=== PATIENT | female | born 1955 | race Caucasian/White ===

== ENCOUNTER 2016-12-25 17:26 | Emergency (ER) | payer MEDICARE, OTHER ==
[~2016-12-25] VITALS: Ht 170.2 cm; Wt 98.6 kg
[~2016-12-25 17:26] MED LIST: COU5 PO; PRILOSEC; SULF1TAB7 PO
[2016-12-25 17:28] VITALS: BP 143/78; PULSE 84; RESP 16; O2SAT 99
[2016-12-25 17:53] LABS: BASOPHILS % (AUTO) 0.4 % (0-3); EOSINOPHILS % (AUTO) 3.1 % (0-5); MONOCYTES % (AUTO) 7.4 % (4-12); Mean Corpuscular Hemoglobin 33.9 pg (27.0-35.0); Mean Corpuscular Volume 101.8 fL (81-100); Platelet Count 230 bil/L (150-400)
[2016-12-25] MEDS ORDERED: 0.9% Sodium Chloride 1,000 ML IV ONE (20:30)
--- NOTE | 2016-12-25 20:34 | ED.REPORT ---
HPI-Abd Pain F 40 and Over Date of Service Dec 25, 2016 ED Provider: Jerome Victor PA-C Tatyana is a 61-year-old female with a history of gastric bypass surgery, factor V Leiden deficiency who presents with a chief complaint of abdominal pain. She reports left sided abdominal pain centered in the left lower quadrant that radiates to the suprapubic. She states that it is intermittent crampy. Aggravated by walking and moving around. She reports that it is 10 over 10 at its worse and 3 out of 10 when it is less. The pain began last night and woke her from sleep. She reports feeling weak, dizzy, having diarrhea, dysuria without hematuria. History of appendectomy, cholecystectomy. She does have her uterus and ovaries. She had surgery 2 weeks ago to remove excess abdominal skin related to the weight loss from her gastric bypass surgery. Denies fever, chills, malaise, chest pain, difficulty breathing, heartburn. Nursing Notes Stated Complaint: PAIN AND FEVER FROM URGENT CARE Chief Complaint: Female Abdominal Pain Nursing Notes Reviewed: Yes Allergies: Coded Allergies: No Known Allergies (Unverified Allergy, Unknown, 12/25/16) Scheduled ([Prilosec]) 20 MG BID Amoxicillin/Clav K 875-125 mg (Amoxicillin/Clav K 875-125 mg) 875 Mg Tab 1 TABLET PO BID Ondansetron ODT (Ondansetron ODT) 4 Mg Tab.rapdis 4-8 MG PO TID Sulfamethoxazole/Trimeth 800-160 mg (Bactrim DS) 1 Each Tablet 1 TABLET PO BID Warfarin Inactive Drug Do Not Use (Coumadin Inactive Drug Do Not Use) 5 Mg Tablet 10 MG PO 17 WEDNESDAY Warfarin Inactive Drug Do Not Use (Coumadin Inactive Drug Do Not Use) 5 Mg Tablet 7.5 MG PO 17 6 DAYS/ WEEK [id number]-WED-WED General Time Seen by MD: 20:09 Chief Complaint Abdominal pain Sudden in Onset?: Yes Past Medical History Past Medical History pneumonia UTI Reports: Hypertension Past Surgical History thyroid biopsy left wrist reconstruction gastric bypass Reports: Appendectomy, Cholecystectomy Social History "moderate" alcohol use Ambulatory Status Independent Review of Systems General: Denies fever, chills, malaise. HEENT: Denies congestion, headache, sore throat. Respiratory: Denies dyspnea, cough, shortness of breath, wheezing. Cardiovascular: Denies chest pain, palpitations. Gastrointestinal: Admits abdominal pain. Denies vomiting, diarrhea. Otherwise as noted in HPI. Physical Exam General: Well appearing, well developed, well nourished, no acute distress. Head: Atraumatic, normocephalic. Eyes: No scleral icterus or injection. No discharge. Vision grossly intact. ENT: Voice clear, hearing grossly intact. Respiratory: Regular rate and rhythm. Breath sounds present, clear to auscultation and equal bilaterally. No respiratory distress. No increased work of breathing, speaks in complete sentences. Cardiovascular: Regular rate and rhythm, without murmur, gallop or rub. No pedal edema. Gastrointestinal: Long transverse incision covered surgical tape across the abdomen below the umbilicus. Clean and dry without discharge. Appears to be healing well. Abdomen moderately tender to deep palpation in the left quadrants without rebound. No peritoneal signs. No Blessing or Cuello Victor sign. Bowel sounds normoactive. Skin: Warm and dry. Neurological: Grossly nonfocal. Psychological: Alert and oriented. Speech appropriate, linear and logical. Behavior appropriate. Vital Signs Vital Signs (First) Date Time Temp Pulse Resp B/P Pulse Ox O2 Delivery O2 Flow Rate FiO2 12/25/16 17:28 36.8 84 16 143/78 99 Room Air Initial VS: Reviewed, Vital signs normal Interpretation & Diagnostics Lab Results Interpretation Result Diagram: 12/25/16 1742 12/25/16 1742 Test 12/25/16 17:42 White Blood Count 8.5th/mm3 (3.8-10.1) Red Blood Count 3.92mil/mm3 (3.90-5.20) Hemoglobin 13.3g/dL (12.0-15.6) Hematocrit 39.9% (35.0-46.0) Mean Corpuscular Volume 101.8fL (81-100) Mean Corpuscular Hemoglobin 33.9pg (27.0-35.0) Mean Corpuscular Hemoglobin Concent 33.3% (32.0-37.0) Red Cell Distribution Width 12.8% (12.3-15.4) Platelet Count 230bil/L (150-400) Neutrophils (%) (Auto) 72.0% (40-74) Lymphocytes (%) (Auto) 17.0% (14-46) Monocytes (%) (Auto) 7.4% (4-12) Eosinophils (%) (Auto) 3.1% (0-5) Basophils (%) (Auto) 0.4% (0-3) Sodium Level 136mEq/L (134-144) Potassium Level 4.2mEq/L (3.5-5.2) Chloride Level 97mEq/L (97-108) Carbon Dioxide Level 25mmol/L (18-29) Blood Urea Nitrogen 11mg/dL (8-27) Creatinine 0.59mg/dL (0.57-1.00) Estimat Glomerular Filtration Rate 148mL/min (>59) Glucose Level 108mg/dL (60-99) Calcium Level 8.8mg/dL (8.5-10.1) Magnesium Level 2.0mg/dL (1.6-2.6) Total Bilirubin 0.3mg/dL (0.0-1.2) Aspartate Amino Transf (AST/SGOT) 18U/L (0-50) Alanine Aminotransferase (ALT/SGPT) 21U/L (0-32) Alkaline Phosphatase 93U/L (25-165) Total Protein 6.9g/dL (6.4-8.4) Albumin 3.8g/dL (3.4-5.0) Lipase 35U/L (13-60) Hold Zavaleta Top Tube Received (Received) CT Abd / Pelvis Interpretation PROCEDURE: CT ABDOMEN AND PELVIS WITH CONTRAST ([id number]) INDICATIONS: left-sided abdominal pain IMPRESSION: 1. Extensive diverticulosis. There is acute diverticulitis in sigmoid colon. No evidence for No diverticular perforation or diverticular abscess. 2. Intrahepatic dilatation and dilated common bile duct appear stable, most likely sequelae of cholecystitis. 3. Gastric bypass. 4. A large subcutaneous fluid collection within the anterior abdominal wall measuring 2 x 19 x 6 cm. It is most likely a postoperative seroma. Interpretation / Wet Read by: Interpret - Radiologist Re-Eval/Medical Decision Med Decision/Clinical Course 61-year-old female with chief complaint of abdominal pain that woke her from sleep last night. Moderately tender to deep palpation in left quadrants. CBC and CMP are essentially normal. Vital signs normal. CT reveals extensive diverticulosis with diverticulitis in the sigmoid colon. No abscess or perforation noted. I believe she is a good candidate for outpatient treatment as her pain is moderate, her vitals are within normal limits, she has no leukocytosis, she seems capable of adhering to medication regimen and obtaining follow-up care. She is amenable to outpatient care. I discussed the case with Dr. Coles who met with and examine the patient. She concurs. Provided prescription for amoxicillin clavulanate to be taken twice a day for 10 days as well as Zofran and a small amount of hydrocodone and acetaminophen. Advise primary care follow-up in 3 days. Provided emergency return precautions. Patient and her family understand and agree with the plan. Discharge & Departure Primary Impression: Diverticulitis Diverticulitis site: large intestine Diverticulitis bleeding: without bleeding Diverticulitis complication: without perforation or abscess Qualified Code: K57.32 - Diverticulitis of large intestine without perforation or abscess without bleeding Disposition: Home Discharge Condition All VS Reviewed: Yes Condition: Stable Patient Instructions: Diverticulitis (ED), Diverticulitis Diet (ED) Additional Instructions: Evaluation in the emergency department for abdominal pain. CT of her abdomen and pelvis reveals diverticulitis in your sigmoid colon. Does not appear to be severe or complicated. Your labs, vitals and physical exam are otherwise encouraging. I believe he is stable and safe to be discharged to home for outpatient treatment A provide you with her first dose of Augmentin to be taken here in the emergency department. Please continue taking his medication twice a day for the next 10 days. I will provide a prescription. I will also provide a prescription for antinausea medication as this can sometimes upset your stomach. It is best taken with food. I have provided you with some instructions regarding diet that might improve your comfort. I will send you home with a small supply of narcotic pain relievers. Please do not drink alcohol or operate a vehicle within 4 hours of taking these. When these are gone I suggest 1000 g of Tylenol every 6 hours for pain. Please follow up with your primary care provider in 2 or 3 days to assess your progress. Return to emergency department for any new or worsening symptoms including increasing pain, fever, vomiting.. Referrals: Verónica Limon (PCP) (Family) EDSupervising Provider for APC: Mahsa Coles MD Attending Statement I agree with J LUIS Victor's note. 61-year-old female with past medical history of diverticulitis and factor V Leiden disease here with flare of diverticulitis. She is very reliable. She has been given a prescription for Augmentin and her first dose in the emergency department. She will follow-up with her primary care physician. At this time, her abdominal exam is benign without any concern for acute surgical intervention. copies to: Verónica Limon Seth PA-C Dec 25, 2016 20:34 Mahsa Coles MD Dec 26, 2016 00:09
--- NOTE | 2016-12-25 21:35 | DRSVH ---
PROCEDURE: CT ABDOMEN AND PELVIS WITH CONTRAST ([id number]) INDICATIONS: left-sided abdominal pain TECHNIQUE: After the administration of intravenous contrast, 5 mm thick sections acquired from the diaphragm to the symphysis. 5 mm coronal and sagittal reformats were acquired. For radiation dose reduction, the following was used: automated exposure control, adjustment of mA and/or kV according to patient siz e. COMPARISON: [facility], CT, CT ABDOMEN PELVIS W CONTRAST, 06/04/2016, 11:05 AM. [facility], CT, ABD/PELVIS W/CON (PNL), 09/02/2008, 18:36. FINDINGS: Image quality: Excellent. ABDOMEN: Lung bases: Lung bases are clear. Heart size is normal. A small hiatal hernia is present. Solid organs: Liver and spleen are normal in size and enhancement. Mild intrahepatic biliary dilati on is unchanged. Gallbladder is surgically absent. Common bile duct is distended measuring up to 13 m m. Pancreas enhances normally. No adrenal nodules. Kidneys demonstrate normal size and enhancement , without hydronephrosis. Peritoneum and bowel: There are innumerable colonic diverticula, most most in sigmoid colon. A small amount of free fluid is present in the left lower quadrant. There is focal thickening in sigmoid col on and inflammatory stranding, consistent with acute diverticulitis. There is gastric bypass. Bowel loops demonstrate normal wall thickness and caliber. No free fluid or air. Nodes and vessels: No retroperitoneal or mesenteric adenopathy by size criteria. Aorta and inferior vena cava are normal in size. Miscellaneous: Tiny fat-containing umbilical hernia is noted. There is a large fluid collection in a nterior abdominal wall within the subcutaneous fat measuring 2 cm deep, 19 cm transverse and 6 cm cep halocaudal. PELVIS: Genitourinary: Bladder wall thickness is normal. Miscellaneous: No inguinal hernias or adenopathy. Bones: No suspicious bony lesions. No vertebral body compression fractures. IMPRESSION: 1. Extensive diverticulosis. There is acute diverticulitis in sigmoid colon. No evidence for No diver ticular perforation or diverticular abscess. 2. Intrahepatic dilatation and dilated common bile duct appear stable, most likely sequelae of cholec ystitis. 3. Gastric bypass. 4. A large subcutaneous fluid collection within the anterior abdominal wall measuring 2 x 19 x 6 cm. It is most likely a postoperative seroma. Dictated by: Kailey Ash M.D. on 12/25/2016 at 21:23 Approved by: Kailey Ash M.D. on 12/25/2016 at 21:33
[2016-12-25] MEDS ORDERED: Amoxicillin-Clav 875-125 mg Tablet PO ONE (22:15)
[2016-12-25] MEDS ORDERED: AGM875T PO (22:24)
[2016-12-25] MEDS ORDERED: ONDA4TAB12 PO (22:24)
[2016-12-25] MEDS ORDERED: _HYDROcodone/APAP 5-325 mg Tablet PO PRN (22:25)
[2016-12-25 23:05] VITALS: BP 123/71; PULSE 79; RESP 16; O2SAT 98
== END 2016-12-25 23:06 | disposition home or self-care (01) ==
LOC: SED 17:26
DX: K57.32 Diverticulitis of large intestine without perforation or abscess without bleeding (principal); R53.1 Weakness; R42 Dizziness and giddiness; R30.0 Dysuria; I10 Essential (primary) hypertension; Z90.49 Acquired absence of other specified parts of digestive tract; Z98.84 Bariatric surgery status
CPT/HCPCS: 36415; 74177; 80053; 83690; 83735; 85025; 96361; 96374; 99285; J2270; J7030; Q9967

== ENCOUNTER 2017-04-12 12:51 | Emergency (ER) | payer MEDICARE ==
[~2017-04-12] VITALS: Ht 170.2 cm; Wt 98.2 kg
[~2017-04-12 12:51] MED LIST changes: +AGM875T PO; +ONDA4TAB12 PO
[2017-04-12 12:53] VITALS: BP 150/83; PULSE 83; RESP 16; O2SAT 100
--- NOTE | 2017-04-12 13:02 | ED.REPORT ---
HPI-Trauma Multiple Date of Service Apr 12, 2017 ED Provider: Artur Uriarte MD Patient is a 61 year old female with a hx of DVT, HTN, and factor V on Coumadin who presents to the ED s/p falling 1 foot off a deck last night. She fell backwards onto lumbar and hit her head. She was intoxicated at the time and does not remember if she lost consciousness. She denies vision changes, dizziness, confusion, or any other symptoms. Her last INR was last week at 2.5. Nursing Notes Stated Complaint: FELL Chief Complaint: Head, Face, Neck Trauma Nursing Notes Reviewed: Yes Allergies: Coded Allergies: No Known Allergies (Verified Allergy, Unknown, 04/12/17) Scheduled ([Prilosec]) 20 MG BID Amoxicillin/Clav K 875-125 mg (Amoxicillin/Clav K 875-125 mg) 875 Mg Tab 1 TABLET PO BID Ondansetron ODT (Ondansetron ODT) 4 Mg Tab.rapdis 4-8 MG PO TID Sulfamethoxazole/Trimeth 800-160 mg (Bactrim DS) 1 Each Tablet 1 TABLET PO BID Warfarin Inactive Drug Do Not Use (Coumadin Inactive Drug Do Not Use) 5 Mg Tablet 10 MG PO 17 WEDNESDAY Warfarin Inactive Drug Do Not Use (Coumadin Inactive Drug Do Not Use) 5 Mg Tablet 7.5 MG PO 17 6 DAYS/ WEEK [id number]-[id number]-WED-SUN General Time Seen by Provider: 12:58 Chief Complaint Other (Fall ) Hx Obtained From: Patient, Spouse Arrived By: Walk-in Onset Occurred: Yesterday Symptom Duration: Since onset Past Medical History Past Medical History pneumonia UTI Factor V on coumadin DVT Reports: Hypertension Past Surgical History thyroid biopsy left wrist reconstruction gastric bypass Reports: Appendectomy, Cholecystectomy Smoking History Current Every Day Smoker Social History "moderate" alcohol use Other Social History: Good social support, Ambulatory Status Independent Review of Systems Review of Systems Note: +fall Neurologic: Reports: Headache, Denies: Dizziness, Vision change Complete sys rev & neg: except as marked. Physical Exam Initial Vital Signs Vital Signs (First) Date Time Temp Pulse Resp B/P Pulse Ox O2 Delivery O2 Flow Rate FiO2 04/12/17 12:53 36.9 83 16 150/83 100 Room Air Initial VS: Reviewed Skin: Warm, Dry Psychiatric: Mood/affect normal, Behavior normal, Normal thought content General/Constitutional: Awake, Alert, No acute distress, Well developed Answering questions appropriately. Head / Eyes: Atraumatic, Normocephalic, EOMI No scalp tenderness or signs of trauma Neck: Atraumatic, Supple, Full range of motion, No midline vertebral tend Respiratory / Chest: Breath sounds NL, Breath sounds = bilat, No respiratory distress Cardiovascular: Heart rate NL, Regular rhythm, Heart sounds NL Abdomen: Atraumatic, Soft, Non-tender Back: Atraumatic Neurologic: Oriented X3, Speech NL No lateralizing findings. Re-Eval/Medical Decision Med Decision/Clinical Course Patient is a 61 year old female with a hx of DVT, HTN, and factor V on Coumadin who presents to the ED s/p falling 1 foot off a deck last night. She fell backwards onto lumbar and hit her head. She was intoxicated at the time and does not remember if she lost consciousness. She denies vision changes, dizziness, confusion, or any other symptoms. Her last INR was last week at 2.5. Here in the emergency department the patient is alert/awake, without any lateralizing neurologic symptoms or confusion. Examination reveals no significant signs of trauma. The patient was placed in a cervical collar. CT scan of the head and cervical spine demonstrated no acute injuries or intracranial blood. INR was . At this time, I see no signs of significant injury. Remainder of full head to toe survey is unremarkable. Patient's vital signs remained stable. I feel that she is appropriate for discharge. She has been counseled to reduce her alcohol consumption. Prior to discharge follow-up and return precautions were reviewed in detail with the patient who verbalized understanding and agreement with the plan. The patient was discharged in stable condition. Discharge & Departure Impression: Primary Impression: Head trauma Encounter type: initial encounter Qualified Code: S09.90XA - Unspecified injury of head, initial encounter Additional Impressions: Neck pain Head pain Headache type: unspecified Headache chronicity pattern: unspecified pattern Intractability: not intractable Qualified Code: R51 - Headache Fall Encounter type: initial encounter Qualified Code: W19.XXXA - Unspecified fall, initial encounter Anticoagulated on Coumadin Referrals: Verónica Limon (PCP) (Family) Artur Uriarte MD Apr 12, 2017 13:02 BROOKE BEJARANO Apr 12, 2017 13:11
[2017-04-12] MEDS ORDERED: HYDROcodone-APAP 5-325 mg Tablet PO ONE (13:10)
--- NOTE | 2017-04-12 13:55 | DRSVH ---
PROCEDURE: CT BRAIN WITHOUT CONTRAST ([id number]) INDICATIONS: trauma TECHNIQUE: Noncontrast 4.5 mm thick angled axial sections acquired from the foramen magnum to the vertex, with c oronal reformats. COMPARISON: CT brain 05/11/2013 FINDINGS: Image quality: Excellent. CSF spaces: Basal cisterns are patent. No extra-axial fluid collections. Ventricles are asymmetric al in size and shape but unchanged, normal variant. Brain: No midline shift. No intracranial masses or hemorrhage. Cuello-white matter interface is norm al. Skull and face: Calvarium and visualized facial bones are intact, without suspicious lesions. Sinuses: Visualized sinuses and mastoids are clear. IMPRESSION: 1. No acute intracranial hemorrhage, fracture or other posttraumatic finding. 2. Asymmetrical lateral ventricles, right larger than left, no midline shift or interval change from prior study. Dictated by: Checo Tello M.D. on 04/12/2017 at 13:50 Approved by: Checo Tello M.D. on 04/12/2017 at 13:53
--- NOTE | 2017-04-12 14:03 | DRSVH ---
PROCEDURE: CT CERVICAL SPINE WITHOUT CONTRAST ([id number]) INDICATIONS: trauma TECHNIQUE: Noncontrast 3 mm thick sections acquired from the skull base to the T4 level. Sagittal and coronal r eformats were then constructed. For radiation dose reduction, the following was used: automated exp osure control, adjustment of mA and/or kV according to patient size. COMPARISON: None. FINDINGS: Image quality: Excellent. Bones: Loss of cervical lordosis may be positional or related to muscle spasm. No fractures or disloc ations. Visualized superior ribs are intact. There is degenerative disc disease and bony spondylosis at the C4-5 level. Soft tissues: Prevertebral soft tissues are normal in thickness. No paravertebral hematomas. No ap ical pneumothoraces. IMPRESSION: 1. Loss of lordosis. 2. No fracture or malalignment. 3. Disc degeneration and spondylosis C4-5. Dictated by: Checo Tello M.D. on 04/12/2017 at 13:58 Approved by: Checo Tello M.D. on 04/12/2017 at 14:01
[2017-04-12 14:19] LABS: INR 2.24 ratio
[2017-04-12 14:35] LABS: BASOPHILS % (AUTO) 0.4 % (0-3); EOSINOPHILS % (AUTO) 1.3 % (0-5); MONOCYTES % (AUTO) 9.1 % (4-12); Mean Corpuscular Hemoglobin 33.9 pg (27.0-35.0); Mean Corpuscular Volume 100.2 fL (81-100); NEUTROPHILS % (AUTO) 59.9 % (40-74); Platelet Count 181 bil/L (150-400)
[2017-04-12 14:52] LABS: TROPONIN T < 0.010 ug/L (0.0-0.011)
[2017-04-12 14:58] VITALS: BP 132/72; PULSE 70; O2SAT 98
== END 2017-04-12 14:57 | disposition home or self-care (01) ==
LOC: SED 12:51
DX: S09.8XXA Other specified injuries of head, initial encounter (principal); W17.89XA Other fall from one level to another, initial encounter; Y93.89 Activity, other specified; Y92.009 Unspecified place in unspecified non-institutional (private) residence as the place of occurrence of the external cause; Y99.8 Other external cause status; M54.2 Cervicalgia; I10 Essential (primary) hypertension; F17.200 Nicotine dependence, unspecified, uncomplicated; Z87.01 Personal history of pneumonia (recurrent); Z87.440 Personal history of urinary (tract) infections; Z79.01 Long term (current) use of anticoagulants
CPT/HCPCS: 36415; 70450; 72125; 80053; 83605; 83880; 84484; 85025; 85610; 99285; G0463